=== PATIENT | female | born 1950 | race Caucasian/White ===

== ENCOUNTER → 2016-03-10 | Outpatient (CLI) | payer MEDICARE, BC ==
[~2016-03-10] MED LIST: 00186-0370-20 IH; PROAIR HFA0.09 MG/AC IH; SPIRIVA RE2.5 MCG/Ac IH; SYNTHROID0.137 MG PO
== END ==
LOC: COL.VAS 11:59
DX: M79.605 Pain in left leg (principal)

== ENCOUNTER → 2016-03-12 | Outpatient (CLI) | payer MEDICARE, BC | LOC: COL.VAS 10:57 | DX: I70.292 Other atherosclerosis of native arteries of extremities, left leg (principal); M79.605 Pain in left leg ==

== ENCOUNTER → 2016-03-23 | Outpatient (CLI) | payer MEDICARE, BC | LOC: COL.RAD 09:05 | DX: I73.89 Other specified peripheral vascular diseases (principal); M79.605 Pain in left leg; F17.200 Nicotine dependence, unspecified, uncomplicated | CPT/HCPCS: Q9967 ==

== ENCOUNTER → 2016-10-14 | Outpatient (CLI) | payer MEDICARE, BC | LOC: MC.RAD 09:12 | DX: Z12.31 Encounter for screening mammogram for malignant neoplasm of breast (principal) ==

== ENCOUNTER 2017-12-19 13:00 | Outpatient (RCR) | payer MEDICARE, BC | END 2018-01-02 11:16 | disposition home or self-care (01) | LOC: WSPT 13:00 | DX: M47.816 Spondylosis without myelopathy or radiculopathy, lumbar region (principal) | CPT/HCPCS: G8978-GP; G8979-GP; G8980-GP ==

== ENCOUNTER 2018-01-24 10:16 | Emergency (ER) | payer MEDICARE, BC ==
[~2018-01-24] VITALS: Ht 160 cm; Wt 72.7 kg
[2018-01-24 10:26] VITALS: BP 135/79; PULSE 73; TEMP 97.6
[2018-01-24] MEDS ORDERED: DYAZIDE 25 MG-51 CAP PO (10:38)
[2018-01-24] MEDS ORDERED: PLAVIX 75MG TAB75 MG PO (10:38)
[2018-01-24] MEDS ORDERED: ASPIRIN 81M81 MG/TA2 PO (10:39)
[2018-01-24] MEDS ORDERED: CEPHALEXIN500 M1 PO (11:14)
== END 2018-01-24 11:48 | disposition home or self-care (01) ==
LOC: COL.ER 10:16
DX: S61.316A Laceration without foreign body of right little finger with damage to nail, initial encounter (principal); E03.9 Hypothyroidism, unspecified; J44.9 Chronic obstructive pulmonary disease, unspecified; F17.210 Nicotine dependence, cigarettes, uncomplicated; Z23 Encounter for immunization; Z95.5 Presence of coronary angioplasty implant and graft; Z79.02 Long term (current) use of antithrombotics/antiplatelets; Z79.82 Long term (current) use of aspirin; W26.8XXA Contact with other sharp object(s), not elsewhere classified, initial encounter; Y92.009 Unspecified place in unspecified non-institutional (private) residence as the place of occurrence of the external cause

== ENCOUNTER → 2019-04-11 | Outpatient (CLI) | payer MEDICARE, BC ==
[~2019-04-11] MED LIST changes: +ASPIRIN 81M81 MG/TA2 PO; +CEPHALEXIN500 M1 PO; +DYAZIDE 25 MG-51 CAP PO; +PLAVIX 75MG TAB75 MG PO
== END ==
LOC: MC.RAD 12:58
DX: Z12.31 Encounter for screening mammogram for malignant neoplasm of breast (principal); N64.89 Other specified disorders of breast

== ENCOUNTER 2019-10-19 08:35 | Emergency (ER) | payer MEDICARE, BC ==
[~2019-10-19] VITALS: Ht 160 cm; Wt 75.0 kg
[2019-10-19 08:40] VITALS: PULSE 97; TEMP 98.3
[2019-10-19 10:03] LABS: BASO % 0.5 % (0.0-2.0); EOS # 0.2 (0.0-0.7); EOS % 2.7 % (0-4.0); GRAN # 5.7 (1.4-6.5); GRAN % 69.2 % (42.2-75.2); HEMATOCRIT 39.1 % (37.0-47.0); HEMOGLOBIN 13.1 g/dl (12.5-16.0); LYMPH # 1.6 (1.2-3.4); LYMPH % 19.6 % (20.0-51.0); MEAN CELL VOLUME 94 fl (80.0-100.0); MEAN CORPUSCULAR HEMOGLOBIN 31 pg (27.0-31.0); MEAN CORPUSCULAR HGB CONC 34 g/dl (33.0-37.0); MEAN PLATELET VOLUME 11.4 fl (7.4-10.4); MONO # 0.7 (0.1-0.6); MONO % 7.9 % (1.7-9.3); PLATELET COUNT 207 K/mm3 (130-400); RED BLOOD COUNT 4.17 M/mm3 (4.10-5.30); REDCELL DISTRIBUTION WIDTH-CV 14.3 % (11.5-14.5)
[2019-10-19 10:09] LABS: ALANINE AMINOTRANSFERASE 18 U/L (4-34); ALBUMIN 4.1 gm/dL (3.5-5.0); ALKALINE PHOSPHATASE 82 U/L (50-136); ANION GAP 6 mmol/L (7-16); AST,SGOT 33 U/L (15-37); BILIRUBIN,TOTAL 0.6 mg/dL (0.0-1.0); BLOOD UREA NITROGEN 32 mg/dL (7-17); CALCIUM 9.6 mg/dL (8.4-10.2); CARBON DIOXIDE 32 mmol/L (22-30); CHLORIDE 104 mmol/L (98-107); CREATININE, serum 1.24 (0.52-1.25); GLUCOSE 81 mg/dL (74-106); POTASSIUM 3.9 mmol/L (3.4-5.0); PROTHROMBIN TIME 11.6 SECONDS (9.7-12.8); SODIUM 141 mmol/L (137-145); TOTAL PROTEIN 6.9 gm/dL (6.4-8.2)
[2019-10-19 10:28] LABS: C-REACTIVE PROTEIN < 0.5 mg/dL (0.0-0.9)
[2019-10-19 10:36] LABS: ERYTHROCYTE SEDIMENTATION RATE 12 mm/hr (0-30)
[2019-10-19 12:07] VITALS: BP 132/85
== END 2019-10-19 11:11 | disposition home or self-care (01) ==
LOC: COL.ER 08:35
PROVIDERS: Nurse Practitioner Primary Care
DX: M25.562 Pain in left knee (principal); I10 Essential (primary) hypertension; E03.9 Hypothyroidism, unspecified; F17.210 Nicotine dependence, cigarettes, uncomplicated; Z98.890 Other specified postprocedural states; Z90.89 Acquired absence of other organs; Z79.02 Long term (current) use of antithrombotics/antiplatelets; Z79.82 Long term (current) use of aspirin; Z79.890 Hormone replacement therapy

== ENCOUNTER → 2020-05-26 | Outpatient (CLI) | payer MEDICARE, BC | LOC: MC.RAD 04-14 09:45 | DX: Z12.31 Encounter for screening mammogram for malignant neoplasm of breast (principal) ==

== ENCOUNTER 2020-07-18 11:18 | Emergency (ER) | payer MEDICARE, BC ==
[~2020-07-18] VITALS: Ht 160 cm; Wt 80.9 kg
[2020-07-18 14:39] VITALS: BP 126/64; PULSE 78; TEMP 98.6
== END 2020-07-18 14:46 | disposition home or self-care (01) ==
LOC: COL.ER 11:18
DX: I73.9 Peripheral vascular disease, unspecified (principal); Z95.820 Peripheral vascular angioplasty status with implants and grafts; Z95.5 Presence of coronary angioplasty implant and graft; Z79.02 Long term (current) use of antithrombotics/antiplatelets

== ENCOUNTER 2020-12-29 12:45 | Outpatient (RCR) | payer MEDICARE, BC | END 2020-12-29 14:12 | disposition home or self-care (01) | LOC: MKS.ESL.PT 12:45 | DX: M47.817 Spondylosis without myelopathy or radiculopathy, lumbosacral region (principal) ==

== ENCOUNTER → 2021-06-18 | Outpatient (CLI) | payer MEDICARE, BC | LOC: MC.RAD 10:23 | DX: Z12.31 Encounter for screening mammogram for malignant neoplasm of breast (principal) ==

== ENCOUNTER → 2021-08-25 | Outpatient (CLI) | payer MEDICARE, BC | LOC: COL.RAD 09:58 | DX: Z12.2 Encounter for screening for malignant neoplasm of respiratory organs (principal); N28.89 Other specified disorders of kidney and ureter; R91.1 Solitary pulmonary nodule; F17.210 Nicotine dependence, cigarettes, uncomplicated ==

== ENCOUNTER → 2021-09-03 | Outpatient (CLI) | payer MEDICARE, BC | LOC: COL.RAD 11:08 | DX: N28.89 Other specified disorders of kidney and ureter (principal) | CPT/HCPCS: Q9967 ==

== ENCOUNTER → 2022-04-01 | Outpatient (CLI) | payer MEDICARE, BC ==
[~2022-04-01] MED LIST changes: +CRUTCHES MC; +NORCO 325 MG-51 TAB PO
== END ==
LOC: COL.VAS 12:56
DX: I34.0 Nonrheumatic mitral (valve) insufficiency (principal); J44.9 Chronic obstructive pulmonary disease, unspecified

== ENCOUNTER → 2022-04-27 | Outpatient (CLI) | payer MEDICARE, BC | LOC: COL.RAD 10:18 | DX: M71.21 Synovial cyst of popliteal space [Baker], right knee (principal); M22.41 Chondromalacia patellae, right knee; M17.11 Unilateral primary osteoarthritis, right knee ==

== ENCOUNTER → 2022-06-21 | Outpatient (CLI) | payer MEDICARE, BC | LOC: MC.RAD 09:53 | DX: Z12.31 Encounter for screening mammogram for malignant neoplasm of breast (principal) ==

== ENCOUNTER → 2022-08-06 | Outpatient (CLI) | payer MEDICARE, BC | LOC: COL.RAD 07:30 | DX: I67.89 Other cerebrovascular disease (principal); H53.9 Unspecified visual disturbance ==

== ENCOUNTER → 2023-11-28 | Outpatient (CLI) | payer MEDICARE, BC | LOC: COL.RAD 09:18 | DX: Z12.2 Encounter for screening for malignant neoplasm of respiratory organs (principal); J98.4 Other disorders of lung; R91.8 Other nonspecific abnormal finding of lung field; F17.210 Nicotine dependence, cigarettes, uncomplicated ==